=== PATIENT | male | born 1940 | race Caucasian/White ===

== ENCOUNTER → 2022-07-06 09:10 | Outpatient (BNVA) | payer OTHER, SELFPAY | PROVIDERS: PCP Internal Medicine; Visit Provider Psychiatry & Neurology Neurology ==

== ENCOUNTER 2022-09-13 11:22 | Outpatient (AMB) | payer OTHER, SELFPAY ==
--- NOTE | 2022-09-13 11:26 | A.OFFVIS_ITS ---
Intake Vital Signs 09/13/22 11:29 Weight 162 lb BP 122/62 Pulse 62 Pulse Source Pulse Oximeter Pulse Oximetry (%) 98 Oxygen Delivery Method Room Air Intake Visit Reasons: 2m follow up TREMOR/DEMENTIA/ANGIOPATHY-LVM Intake Note: F/U tremors Wood Gang Sawyer Required: Yes Wood Gang Sawyer Name: Sina Allergies No Known Allergies Allergy (Verified 09/13/22 11:27) HPI HPI Comments History of Present Illness Details 81 y/o right handed male presents for follow up of memory issues and tremors. He is accompanied by his grand son Ronan who helps with history. Pt states that his bilateral hands tremor has slightly improved with propranolol 10 mg BID. Pt reports he has less trouble drinking and dressing. He can do most ADLs independently. His memory still same, stable but forgetful and need to remind to take his medications. His takes care of his medications. Pt goes to daycare, socially active with his family and friends. He reports frequent arousals, having some daytime tiredness. However, pt declined sleep study. Denies hallucination or sundowning behavior. [facility] Medical History Action tremor Adenomatous hyperplasia of prostate Dementia Diabetes GERD (gastroesophageal reflux disease) HTN (hypertension) Hyperlipidemia Family History Mother Diabetes Heart disease Social History Alcohol intake: never Patient Tobacco Use Status: Never used Tobacco Review of Systems Const All systems reviewed & are unremarkable except as noted in HPI and below Physical Exam Vital Signs: Last Vital Signs Pulse 62 09/13/22 11:29 BP 122/62 09/13/22 11:29 Pulse Ox 98 09/13/22 11:29 Oxygen Delivery Method Room Air 09/13/22 11:29 Const General: cooperative, healthy appearing, comfortable and no acute distress Nutritional Appearance: average body habitus Neuro Other: Elmuel UE mild postural tremors gait- slow - decreased arm swing on his right General: tone normal and no focal motor deficits Cranial nerves: Yes Facial sensation intact/muscles of mastication intact, Yes Bilaterally intact EOM present, Yes Nystagmus not present, Yes Normal facial strength present and Yes Midline tongue present Cognition (Neuro): abnormal cognition Gait exam (Neuro): Antalgic gait present Motor exam (neuro): 5/5 motor strength present throughout Deep tendon reflexes (DTR's): Right triceps reflex intensity grade: 1+, Left triceps reflex intensity grade: 1+, Rt Biceps (C5, C6): 1+, Left biceps reflex intensity grade: 1+, Right brachioradialis reflex intensity grade: 1+, Left brachioradialis reflex intensity grade: 1+, Right patellar reflex intensity grade: 1+ and Left patellar reflex intensity grade: 1+ Assessment & Plan Assessment & Plan (1) Dementia: Comment: mixed vs alzheimers Code(s): F03.90 - Unspecified dementia, unspecified severity, without behavioral disturbance, psychotic disturbance, mood disturbance, and anxiety (2) Action tremor: Comment: senile or essential tremors Code(s): G25.2 - Other specified forms of tremor Plan Advised patient to continue to take propranolol 10mg bid for tremors. Namenda xR 7mg daily. Advised patient to increase daily physical and cognitive activity. Manage HTN and DM. Medications: Refilled memantine 7 mg PO DAILY 30 ea 6RF propranolol 10 mg PO BID 60 tabs 2RF Coding Level of Care Code Est Pt Level 4 (68876) Diagnoses Dementia F03.90 Action tremor G25.2
[2022-09-13 11:29] VITALS: BP 122/62; PULSE 62; O2SAT 98
== END 2022-09-13 11:51 | disposition home or self-care (01) ==
PROVIDERS: Visit Provider Nurse Practitioner Family
DX: F03.90 Unspecified dementia, unspecified severity, without behavioral disturbance, psychotic disturbance, mood disturbance, and anxiety (principal); G25.2 Other specified forms of tremor
CPT/HCPCS: 99214

== ENCOUNTER → 2022-09-13 11:22 | Outpatient (BNVA) | payer OTHER, SELFPAY | PROVIDERS: Visit Provider Nurse Practitioner Family | DX: F03.90 Unspecified dementia, unspecified severity, without behavioral disturbance, psychotic disturbance, mood disturbance, and anxiety (principal) ==

== ENCOUNTER 2023-01-04 11:31 | Outpatient (AMB) | payer OTHER, SELFPAY ==
--- NOTE | 2023-01-04 11:33 | MHC.OFFVIS ---
Intake Vital Signs 01/04/23 11:36 Weight 164 lb 2 oz BP 144/62 H Blood Pressure Location Lt brachial Position Sitting Pulse 54 Pulse Source Pulse Oximeter Pulse Oximetry (%) 98 Oxygen Delivery Method Room Air Intake Visit Reasons: 4m follow up TREMOR/DEMENTIA/ANGIOPATHY-LVM Intake Note: F/U tremors Assembler Filters Required: Yes Assembler Filters Name: [place] Allergies No Known Allergies Allergy (Verified 01/04/23 11:34) HPI HPI Comments History of Present Illness Details 82 y/o right handed male presents for follow up of memory issues and tremors. He is accompanied by his grand son Ronan who helps with history. Pt started propranolol for tremor, but his HR was low, 50s and propranolol was discontinued. Primidone 25 mg BID started and he states that has less tremor with primidone 25 mg BID. Pt reports he has less trouble drinking and dressing. He can do most ADLs independently. Namenda started for memory loss but it made him not feeling good, and it also discontinued. Pt is not interested in medication for memory at this time. His memory same, stable but forgetful and need to remind to take his medications. His takes care of his medications. Pt goes to daycare, socially active with his family and friends. He reports frequent arousals, having some daytime tiredness. However, pt declined sleep study. [facility] Medical History Action tremor Dementia Adenomatous hyperplasia of prostate GERD (gastroesophageal reflux disease) Hyperlipidemia Diabetes HTN (hypertension) Surgical History (Updated 01/04/23 @ 11:36 by Shayy Liz CMA) History of cataract surgery Family History Mother Diabetes Heart disease Social History (Updated 01/04/23 @ 11:36 by Shayy Liz CMA) Alcohol intake: never Patient Tobacco Use Status: Never used Tobacco Review of Systems Const All systems reviewed & are unremarkable except as noted in HPI and below Physical Exam Vital Signs: Last Vital Signs Pulse 54 01/04/23 11:36 BP 144/62 H 01/04/23 11:36 Pulse Ox 98 01/04/23 11:36 Oxygen Delivery Method Room Air 01/04/23 11:36 Const General: cooperative, healthy appearing, comfortable and no acute distress Nutritional Appearance: average body habitus Neuro Other: Lemuel UE mild postural tremors gait- slow - decreased arm swing on his right General: tone normal and no focal motor deficits Cranial nerves: Yes Facial sensation intact/muscles of mastication intact, Yes Bilaterally intact EOM present, Yes Nystagmus not present, Yes Normal facial strength present and Yes Midline tongue present Cognition (Neuro): abnormal cognition Gait exam (Neuro): Antalgic gait present Motor exam (neuro): 5/5 motor strength present throughout Deep tendon reflexes (DTR's): Right triceps reflex intensity grade: 1+, Left triceps reflex intensity grade: 1+, Rt Biceps (C5, C6): 1+, Left biceps reflex intensity grade: 1+, Right brachioradialis reflex intensity grade: 1+, Left brachioradialis reflex intensity grade: 1+, Right patellar reflex intensity grade: 1+ and Left patellar reflex intensity grade: 1+ Assessment & Plan Assessment & Plan (1) Dementia: Comment: mixed vs alzheimers Code(s): F03.90 - Unspecified dementia, unspecified severity, without behavioral disturbance, psychotic disturbance, mood disturbance, and anxiety (2) Action tremor: Comment: senile or essential tremors Code(s): G25.2 - Other specified forms of tremor Plan Advised patient to continue to take primidone 25 mg bid for tremors. Advised patient to increase daily physical and cognitive activity. Manage HTN and DM. Coding Level of Care Code Est Pt Level 3 (91606) Diagnoses Dementia F03.90 Action tremor G25.2
[2023-01-04 11:36] VITALS: BP 144/62; PULSE 54; O2SAT 98
== END 2023-01-04 11:49 | disposition home or self-care (01) ==
PROVIDERS: PCP Internal Medicine; Visit Provider Nurse Practitioner Family
DX: F03.90 Unspecified dementia, unspecified severity, without behavioral disturbance, psychotic disturbance, mood disturbance, and anxiety (principal); G25.2 Other specified forms of tremor
CPT/HCPCS: 99213

== ENCOUNTER → 2023-01-04 11:31 | Outpatient (BNVA) | payer OTHER, SELFPAY | PROVIDERS: PCP Internal Medicine; Visit Provider Nurse Practitioner Family | DX: F03.90 Unspecified dementia, unspecified severity, without behavioral disturbance, psychotic disturbance, mood disturbance, and anxiety (principal) ==

== ENCOUNTER 2023-11-19 13:12 | Outpatient (AMB) | payer OTHER, SELFPAY ==
--- NOTE | 2023-11-19 13:16 | MHC.OFFVIS ---
Vital Signs 11/19/23 13:17 Height 5 ft 6 in Weight 167 lb 2 oz BMI 27.0 BP 132/60 Blood Pressure Location Rt brachial Position Sitting Respiration 16 Pulse 63 Pulse Source Pulse Oximeter Pulse Oximetry (%) 97 Oxygen Delivery Method Room Air Intake Visit Reasons: 6 mnts f/u REMOR/DEMENTIA/ANGIOPATHY Intake Note: Pt presents for a 10 month follow up for tremors and dementia. Isobutylene Operator Chief Required: Yes Isobutylene Operator Chief Services: Isobutylene Operator Chief Present Isobutylene Operator Chief Name: Pt sonRonan Allergies No Known Allergies Allergy (Verified 11/19/23 13:16) Medication List - Last Reconciled 11/19/23 by Torri Martinez MD acetaminophen (Tylenol Extra Strength) 500 mg PO Q6H PRN amlodipine 10 mg PO DAILY atorvastatin 40 mg PO DAILY blood-glucose meter (FreeStyle Lite Meter kit) As directed candesartan 16 mg PO DAILY docusate sodium 100 mg PO DAILY esomeprazole magnesium (Nexium 24HR) 20 mg PO DAILY isosorbide mononitrate ER 30 mg PO DAILY metformin 1,000 mg PO DAILY primidone 25 mg (1/2 x 50 mg) PO BID 90 days tamsulosin 0.4 mg PO BEDTIME HPI Comments Details: 82 y/o right handed male presents for follow up of memory issues and tremors. He is accompanied by his grand son Ronan who helps with history. Tremors are fairly controlled with primidone 25 mg BID. Pt reports he has less trouble drinking and dressing. He can do most ADLs independently. Pt is not interested in medication for memory at this time. His memory same, stable but forgetful and need to remind to take his medications. His takes care of his medications. Patient goes to daycare,lives with his family, socially active with his family and friends. [facility] Medical History (Updated 11/19/23 @ 13:44 by Torri Martinez MD) Cognitive disorder Action tremor Dementia Adenomatous hyperplasia of prostate GERD (gastroesophageal reflux disease) Hyperlipidemia Diabetes HTN (hypertension) Surgical History History of cataract surgery Family History Mother Diabetes Heart disease Social History Alcohol intake: never Patient Tobacco Use Status: Never used Tobacco Physical Exam Vital Signs: Last Vital Signs Pulse 63 11/19/23 13:17 Resp 16 11/19/23 13:17 BP 132/60 11/19/23 13:17 Pulse Ox 97 11/19/23 13:17 Oxygen Delivery Method Room Air 11/19/23 13:17 BMI result Body Mass Index 27.0 Const General: cooperative, healthy appearing, comfortable and no acute distress Nutritional Appearance: average body habitus Neuro Other: Lemuel UE mild postural tremors gait- slow - decreased arm swing on his right General: tone normal and no focal motor deficits Cranial nerves: Yes Facial sensation intact/muscles of mastication intact, Yes Bilaterally intact EOM present, Yes Nystagmus not present, Yes Normal facial strength present and Yes Midline tongue present Cognition (Neuro): abnormal cognition Gait exam (Neuro): Antalgic gait present Motor exam (neuro): 5/5 motor strength present throughout Deep tendon reflexes (DTR's): Right triceps reflex intensity grade: 1+, Left triceps reflex intensity grade: 1+, Rt Biceps (C5, C6): 1+, Left biceps reflex intensity grade: 1+, Right brachioradialis reflex intensity grade: 1+, Left brachioradialis reflex intensity grade: 1+, Right patellar reflex intensity grade: 1+ and Left patellar reflex intensity grade: 1+ Assessment & Plan Assessment & Plan (1) Action tremor: Comment: senile or essential tremors Code(s): G25.2 - Other specified forms of tremor Category: Medical (2) Cognitive disorder: Code(s): F09 - Unspecified mental disorder due to known physiological condition Category: Medical Plan Continue to take primidone 25 mg bid for tremors. Advised patient to increase daily physical and cognitive activity. will f/u clinically Medications: Changed From primidone 25 mg (1/2 x 50 mg) PO BID 30 days 30 tabs 1RF To primidone 25 mg (1/2 x 50 mg) PO BID 90 days 90 tabs 4RF Coding Level of Care Code Est Pt Level 4 (06715) Diagnoses Action tremor G25.2 Cognitive disorder F09
[2023-11-19 13:17] VITALS: BP 132/60; PULSE 63; RESP 16; O2SAT 97; BMI 27.0
== END 2023-11-19 13:48 | disposition home or self-care (01) ==
PROVIDERS: PCP Internal Medicine; Visit Provider Psychiatry & Neurology Neurology
DX: G25.2 Other specified forms of tremor (principal); R41.89 Other symptoms and signs involving cognitive functions and awareness
CPT/HCPCS: 99214

== ENCOUNTER → 2023-11-19 13:12 | Outpatient (BNVA) | payer OTHER, SELFPAY | PROVIDERS: PCP Internal Medicine; Visit Provider Psychiatry & Neurology Neurology ==

== ENCOUNTER 2024-11-17 08:57 | Outpatient (AMB) | payer OTHER, SELFPAY ==
--- OUTSIDE RECORDS SUMMARY | 2024-05-21 05:30 | XMS_ITS ---
Author Organization [facility] Address [address] [place] [address] Care Team Providers Care Dean Of Education Name Role Phone Rosalia GALLARDO, Sai Primary Care Provider U Jaime Floyd Unavailable [phone] Encounters Encounter Location Date Provider Diagnosis [address] [id number] 05/21/2024 Jaime Carlson Plan Of Treatment Next Appt Details Provider Name:Jaime Carlson , 03/02/2025 09:30:00 AM, [address] [place] [address], [id number], Progress Notes * Rob DANIELSOB:[birth year] (83 yo M)Acc No.[id number]:05/21/2024 Progress Note Patient: Binta PERKINSjennifer Provider: Adithya Carlson DPM :1940 A ge:83 Y S ex:Male Date:05/21/2024 Address:[address] [place], [place] [id number] Pcp:Sai Lindsey MD Subjective: * Chief Complaints: * * Medical History: Objective: * Vitals: Assessment: Plan: * Treatment: * Images: * The named appointment provid er may or may not be the originator of this progress note, and it is not deemed complete until electronically signed by the appointment provider. Sign off status: Pending * Provider: Adithya Carlson DPM Date: 0 05/21/2024 Generated for Antione Bautista on: 0 11/17/2024 09:29 AM EDT
--- OUTSIDE RECORDS SUMMARY | 2024-11-13 04:45 | XMS_ITS ---
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 Primary Care Provider U Jaime Floyd Unavailable [phone] Allergies No Known Allergies REASON FOR VISIT At Risk Footcare, Painful Nail(s) aggravated by shoes and causing difficulty standing/walking, Possible Infection, Skin problem Medications Medication SIG (Take, Route, Frequency, Duration) Notes Start Date End Date Status Ketorolac Tromethamine Not-Taking Diclofenac Sodium 1 % as directed Externally Not-Taking Alcohol Pads Not-David ing FreeStyle Lite Test Not-Taking FreeStyle Lite - as directed N ot-Taking Extra Depth Orthopedic Shoes, (1) Pair With (3) Pair Custom Heat Molded Multidensity Innersoles Dx: NIDDM/PVD(E11.51), Hammertoe Foot Deformity(M20.41,M20.42 ), Preulcerative Skin Lesion(s)(L85.1) Wear Daily; Duration: 365 days 02/21/2024 Active Vitamin B-12 500 MCG 1 tablet Orally Onc e a day Not-Taking Tussin Chest Congestion Not-Taking Amoxicillin Not-Taki ng Ibuprofen Not-Taking Cyanocobalamin Activ e Tylenol Extra Strength 500 MG 1 tablet as needed Orally every 6 hrs Active Calcipotriene 0.005 % 1 application Externally Twice a day Active Betamethasone Dipropionate 0.05 % 1 application Externally Once a day Active Ammonium Lactate 12 % 1 application Externally Twice a day Active Docusate Sodium 100 MG 1 capsule as need ed Orally Once a day Active Candesartan Cilexetil 32 MG 1 tablet Orally Once a day Active Atorvastatin Calcium 40 MG 1 tablet Orally Once a day Active amLODIPine Besylate 10 MG 1 tablet Orall y Once a day Active Ciclopirox Active Esomeprazole Magnesium 20 MG 1 capsule Orally Once a day Active Ammonium Lactate 12 % 1 application Externally to affected areas of dry skin to feet except for between the toes Twice a day; Duration: 30 days Active Latanoprost Active Primidone 50 MG 1 tablet Orally Once a day Active Tamsulosin HCl 0.4 MG 1 capsule Orally O nce a day Active Tacrolimus 0.1 % 1 application Externally Once a day Active Isosorbide Mononitrate ER 60 MG 1 tablet in the morning Orally Once a day Active Immunizations Vaccine Route Administration Date Status Comme nts Influenza Unknown 11/13/2024 Refused Social History Tobacco Use: Social History Observation Description Date Details (start date - stop date) Never Smoker NA - NA Tobacco use other than smoking: Question Answer Notes Are you an other tobacco user? No Tobacco Control (Standard) Question Answer Notes Tobacco use: Nonsmoker Additional Findings: Tobacco non-user Current no nsmoker AUDIT-C (Standard) Question Answer Notes Did you have a drink containing alcohol in the p ast year? No Points 0 Interpretation Negative Vital Signs Blood pressure systolic 131 mm Hg 11/14/19 25 Blood pressure diastolic 78 mm Hg 025 Height 5 ft 4 in in 11/13/2024 Weight 165 lbs 11/13/2024 BMI 28.32 kg/m2 11/13/2024 Procedures Procedure Date Ordered Date Performed Result Body Sit e 03627-CVPPAFC NAIL, 6 OR MORE 11/13/2024 N/A 28925 I&D ABSCESS- SIMPLE,SINGLE 11/13/2024 N/A 57550-[id number] SKIN LESIONS, OVER 4 11/13/2024 N/A Encounters Encounter Location Date Provider Diagnosis [facility] [address] [address] 11/13/2024 Jaime Carlson Type 2 diabetes mellitus with diabetic peripheral angiopathy without gangrene E11.51 ; Tinea unguium B35.1 ; Pain in right toe(s) M79.674 ; Pain in left toe(s) M79.675 ; Abscess of toe, right L02.611 and Xerosis of skin L85.3 Assessments Encounter Date Diagnosis (ICD Code) Assessment Notes Treatment Notes Treatment Clinical Notes Section Notes 11/13/2024 Type 2 diabetes mellitus with diabetic peripheral angiopathy without gangrene (ICD-10 - E11.51) Q7(A), Q8(2B), Q9(1B,2C) 11/13/2024 Tinea unguium (ICD-10 - B35.1) 11/13/2024 Pain in right toe(s) (ICD-10 - M79.674) 11/13/2024 Pain in left toe(s) (ICD-10 - M79.675) 11/13/2024 Abscess of toe, right (ICD-10 - L02.611) Patient Educated with: WOUND CARE INSTRUCTIONS.p df (WOUND CARE INSTRUCTIONS.p df) 11/13/2024 Xerosis of skin (ICD-10 - L85.3) Plan Of Treatment Medication Medication Name Sig Start Date Stop Date Notes Ammonium Lactate 12 % 1 application Exte rnally to affected areas of dry skin to feet except for between the toes Twice a day; Duration: 30 days Treatment Notes Assessment Notes Abscess of toe, right Patient Educated w ith: WOUND CARE INSTRUCTIONS.pdf (WOUND CARE INSTRUCTIONS.pdf) Pending Test Test Name Order Date [id number] NAIL, 6 OR MORE 11/13/2024 41358 I&D ABSCESS- SIMPLE,SINGLE 025 [id number] SKIN LESIONS, OVER 4 11/14/19 Next Appt Details Follow Up: 2 Months, Reason: Provider Name:Jaime Carlson , 03/02/2025 09:30:00 AM, [address] [facility], [address], [place], [address], Procedure Notes * Category Sub-Category Detail Notes Debride Nail 6-10 Nail debridement Due to the cl inical pathology outlined in the exam findings, performance of this nail treatment is medically necessary as its management by an unskilled/untrained nonprofessional would put this patients foot and overall health at risk. Therefore, debridement to affected nail(s), as described in exam ( TA, T1, T2, T3, T4, T5, T6, T7, T8, T9 ), was performed exclusively by the physician of record to reduce/remove overall nail length, girth, thickness, subungual debris, and necrotic tissue, by manual and/or electrical means through the use of a nail nipper and/or dremel-type scissors grinder, to a more viable healthy nail plate or bed tissue 6-10 nails in total. Silver nitrate was used for any petechial bleeding as necessary. Definitive antifungal treatment options, both pharmaceutical and surgical, have been reviewed and discussed with the patient. The patient solely prefers the use of intermittent/as needed professional debridement services for their nail condition and understands the need for additional periodic treatments to maintain effectiveness in symptomatic relief - 33585 I&D nail abscess Location T5, As per exam Procedure Performed incision a nd drainage of Subungual Abscess. Incised and Drained involved toenail with sterile nipper and curettaged infected devitalized tissue to healthy bleeding bed. Approximately ( 0.1 ) cc purulent fluid material was drained. Any granuloma present was removed at this time. No underlying bone was visualized. There was minimal bleeding as hemostasis was achieved through the temporary use of either a digital tournaquet or the aforementioned local with epinephrine. Application of sterile Bacitracin dressing performed. Local wound care instructions discussed and dispensed. Recommended Tylenol or Motrin for pain/discomfort (86437), DIABETES: Pt was advised as to the risk of delayed or nonhealing due to diabetes. Pt is to call the office with any questions, concerns, or complications Type Subungual abscess Anesthesia was accomplished TOP ICALLY with Lidocaine Hydrochloride Jelly 2 percent Keratoma Treatment Parring or Cutting o f Benign Hyperkeratotic Lesion(s) (-57) More than 4 Lesions - Due to the a t risk nature of the patients medical condition as documented in the exam findings, performance of this keratoderma treatment is medically necessary as its management by an unskilled/untrained nonprofessional would put this patients foot and overall health at risk. Therefore, the benign hyperkeratotic lesions, ( 8) in total, locations as stated and described in the exam ( SUB MTH (s), 1, B/L, SUB MTH (s), 2, Right, SUB MTH (s), 3, Right, SUB MTH (s), 5, B/L, Plantar Heel(s), B/L ), were pared, and/or cut utilizing a sterile 15 blade, tissue nippers, and/or power dremel instrumentation by the physician of record - 25320, Q8 Progress Notes * Rob DANIELSOB:[birth year] (83 yo M)Acc No.[id number]:11/13/2024 Progress Note Patient: Ariadne PERKINS Provider: Adithya Carlson DPM :1940 A ge:83 Y S ex:Male Date:11/13/2024 Address:[address] [place], [place] [id number] Pcp:Sai Lindsey MD Subjective: * Chief Complaints: * A t Risk FootcarePainful Nail(s) aggravated by shoes and causing difficulty standing/walkingPossible InfectionSkin problem * HPI: A t Risk footcare: Pt States Last PCP Visit: D ate 0 10/01/2024 [facility] P atient accompanied by, GrandsonARPITA, who serves as, Director Records Management/Roof Tile Layer, and is physically present in exam room at time of visit.? S kin problems: Nature: d ryness , scaling. Location: B /L . Duration: s everal days. Course: w orse. Treatments: T opical OTC moisturizing lotion/cream is no longer effective, has not relieved condition. * ROS: G eneral/Constitutional: Nausea d enies. V omiting d enies. H nicolette Thirst d enies. L oss appetite d enies. C hills d enies. F atigue d enies.?Fever d enies. N ight Sweats d enies. U nexplained weight loss d enies. U nexplained weight gain d enies. H EENTM: Dentures d enies. D izziness d enies. G lasses/contacts d enies. R etinopathy d enies. B lurred/double vision d enies. T MJ?denies. D ischarge/drainage d enies. I mplants d enies. S ore throat d enies. D ental implants d enies. H jie of hearing d enies. D ifficulty chewing/swallowing/speaking d enies. N ose bleeds d enies. S ore mouth d enies. ? R espiratory: On Oxygen d enies. P neumonia/pleurisy d enies.?Bronchitis d enies. E mphysema d enies. C oughing d enies. C ough blood?denies. S hortness of breath d enies. W heezing d enies. C ardiovascular: Pacemaker d enies. M STYLE ADVISOR d enies. W PW d enies. C HF d enies. H eart attack d enies. S eptal defect d enies. R apid beat d enies. C hest pain a dmits. A trial Fib. d enies. M urmur/Palpitations d enies. G astrointestinal: Hemorrhoids d enies. S tomach/Abdominal pain d enies. D ark blood stool d enies. I rritable bowel d enies. C onstipation d enies. D iarrhea d enies. H ematology: Swelling a dmits. C lots d enies. V aricose Veins d enies. B ruising d enies. B leeding problem d enies. G enitourinary: Blood urine d enies. F requent/Painfu/urination/bladder control d enies. K idney stones d enies. I nfection (UTI) d enies. N ephropathy d enies. s ex trans dis (STD) d enies. P rostate d enies. M usculoskeletal: Hammertoes a dmits. B unions d enies. B ack Pain d enies. M uscle Cramps/ Resting d enies. M uscle cramps / walking d enies.?Generalized aches and pains d enies. W eakness d enies. I nteg.: Thomas d enies. S cars d enies. C orns/calluses?admits. I ngrown nails a dmits. P ainful nails a dmits. O pen Sores d enies. R ashes d enies. N eurologic: Difficulty sleeping d enies. B rain disorder d enies. N umbness d enies. B alance trouble d enies. C onfusion d enies. F ainting/blackouts d enies. T ingling d enies. T remors d enies. * Medical History: * Surgical History: c ataract surgery right eye * Hospitalization/Major Diagno stic Procedure: D enies Past Hospitalization * Family History: M other: , diabetes, diagnosed with Diabetic - NIDDM. F ather: . S pouse: alive. * Social History: T obacco Use: T obacco use other than smoking A re you an other tobacco user? N o Tobacco Control (Standard) T obacco use: N onsmoker A dditional Findings: Tobacco non-user C urrent nonsmoker D rugs/Alcohol: D rugs H ave you used drugs other than those for medical reasons in the past 12 months? N o M iscellaneous: C affeine: no. Children: yes. Exercise: no. Marital status: . Occupation: Retired. D rug/Alcohol: A MARLENA-C (Standard) D id you have a drink containing alcohol in the past year? N o P oints 0 I nterpretation N egative * Medications: T akingTacrolimus 0.1 % Cream 1 application Externally Once a day Isosorbide Mononitrate ER 60 MG Tablet Extended Release 24 Hour 1 tablet in the morning Orally Once a day Latanoprost Primidone 50 MG Tablet 1 tablet Orally Once a day Tamsulosin HCl 0.4 MG Capsule 1 capsule Orally Once a day Esomeprazole Magnesium 20 MG Capsule Delayed Release 1 capsule Orally Once a day Docusate Sodium 100 MG Capsule 1 capsule as needed Orally Once a day Candesartan Cilexetil 32 MG Tablet 1 tablet Orally Once a day Atorvastatin Calcium 40 MG Tablet 1 tablet Orally Once a day amLODIPine Besylate 10 MG Tablet 1 tablet Orally Once a day Ciclopirox Cyanocobalamin Tylenol Extra Strength 500 MG Tablet 1 tablet as needed Orally every 6 hrs Calcipotriene 0.005 % Cream 1 application Externally Twice a day Betamethasone Dipropionate 0.05 % Cream 1 application Externally Once a day Ammonium Lactate 12 % Cream 1 application Externally Twice a day Extra Depth Orthopedic Shoes, (1) Pair With (3) Pair Custom Heat Molded Multidensity Innersoles . Dx: NIDDM/PVD(E11.51), Hammertoe Foot Deformity(M20.41,M20.42), Preulcerative Skin Lesion(s)(L85.1) Wear Daily Taking Tacrolimus 0.1 % Cream 1 application Externally Once a day Taking Isosorbide Mononitrate ER 60 MG Tablet Extended Release 24 Hour 1 tablet in the morning Orally Once a day Taking Latanoprost Taking Primidone 50 MG Tablet 1 tablet Orally Once a day Taking Tamsulosin HCl 0.4 MG Capsule 1 capsule Orally Once a day Taking Esomeprazole Magnesium 20 MG Capsule Delayed Release 1 capsule Orally Once a day Taking Docusate Sodium 100 MG Capsule 1 capsule as needed Orally Once a day Taking Candesartan Cilexetil 32 MG Tablet 1 tablet Orally Once a day Taking Atorvastatin Calcium 40 MG Tablet 1 tablet Orally Once a day Taking amLODIPine Besylate 10 MG Tablet 1 tablet Orally Once a day Taking Ciclopirox Taking Cyanocobalamin Taking Tylenol Extra Strength 500 MG Tablet 1 tablet as needed Orally every 6 hrs Taking Calcipotriene 0.005 % Cream 1 application Externally Twice a day Taking Betamethasone Dipropionate 0.05 % Cream 1 application Externally Once a day Taking Ammonium Lactate 12 % Cream 1 application Externally Twice a day Taking Extra Depth Orthopedic Shoes, (1) Pair With (3) Pair Custom Heat Molded Multidensity Innersoles . Dx: NIDDM/PVD(E11.51), Hammertoe Foot Deformity(M20.41,M20.42), Preulcerative Skin Lesion(s)(L85.1) Wear Daily Not-Taking/PRNVitamin B-12 500 MCG Tablet 1 tablet Orally Once a day Tussin Chest Congestion Amoxicillin Ibuprofen Ketorolac Tromethamine Diclofenac Sodium 1 % Gel as directed Externally Alcohol Pads FreeStyle Lite Test FreeStyle Lite - Device as directed Medication List reviewed and reconciled with the patientNot-Taking/PRN Vitamin B-12 500 MCG Tablet 1 tablet Orally Once a day Not-Taking/PRN Tussin Chest Congestion Not-Taking/PRN Amoxicillin Not-Taking/PRN Ibuprofen Not-Taking/PRN Ketorolac Tromethamine Not-Taking/PRN Diclofenac Sodium 1 % Gel as directed Externally Not-Taking/PRN Alcohol Pads Not-Taking/PRN FreeStyle Lite Test Not-Taking/PRN FreeStyle Lite - Device as directed Medication List reviewed and reconciled with the patient * Allergies: N .K.D.A.yes[Allergies Verified] Objective: * Vitals: H t: 5 ft 4 in, Wt: 165, BMI: 28.32, Shoe size: 9, BP: 131/78 mm Hg, BS: 140, Ht- cm: 162.56 cm, Wt-k.84 kg. * P ast Orders: L ab:HEMOGLOBIN A1C (GLYCOHEMOGLOBIN) (Order Date - 10/02/2024) (Collection Date & Time - 10/02/2024 09:24 AM) Value Reference Range HEMOGLOBIN A1C % (HH) 6.6 * Examination: O phthalmology Referral: DIABETES EYE EXAM P rocedure Performed: Bucky Jain ate of Exam Performed 1 03/03/2023 D iabetic Retinopathy Screening: Y samir R etinal Screening Performed: Bucky Collazo indings of Diabetic Eye Exam: n o retinopathy V ascular: DP PULSES (B): 0/4, B/L. PT PULSES (B): 0/4, B/L. CAPILLARY FILL TIME: delayed, all digits, B/L. TROPHIC CONDITION-TEXTURE/ELASTICITY/TURGOR/HAIR GROWTH (B):? decreased, fragile, thin, shiny, with sparse to absent hair growth, B/L. TEMPERTURE GRADIENT (C): decreased, cool to cool, proximal to distal, B/L. PIGMENTATION: r ubrous, B/L. EDEMA (C): a bsent, B/L. CLAUDICATION (C): d enies, B/L. REST PAIN: d enies, B/L. PARESTHESIA (C): a bsent, B/L. BURNING (C): a bsent, B/L. N ails: NAILS are: E longated, overgrown, dystrophic, lytic, greater than 3mm thick, discolored and friable with crumbly malodorous subungual debris, with pain on palpation, TA, T1, T2, T3, T4, T5, T6, T7, T8, T9, CARISA-HORN appearance 10mm thickness or greater noted, T5. D ermatologic: SKIN FINDINGS: S kin exam reveals Keratotic lesion(s) located at, SUB MTH (s), 1, B/L, SUB MTH (s), 2, Right, SUB MTH (s), 3, Right, SUB MTH (s), 5, B/L, Plantar Heel(s), B/L , Skin shows sign(s) of, dryness, scaling, in a stocking fashion, no fissure(s) present, B/L. A bscess/infected nail: INSPECTION R eveals Subungual Abscess with nail fluctuance, mild localized erythema, and yellow purulent fluid with pre-operative size approximately ( 1-2 ) mm square, but without exposed bone , T5. Assessment: * Assessment: 1. T ype 2 diabetes mellitus with diabetic peripheral angiopathy without gangrene - E11.51 (Primary) S pecify :Q8 N otes :Q7(A), Q8(2B), Q9(1B,2C) 2 . T inea unguium - B35.1 3 . P ain in right toe(s) - M79.674 4 . P ain in left toe(s) - M79.675 5 . A bscess of toe, right - L02.611 6 . X erosis of skin - L85.3 S pecify :Acute problem, Uncomplicated (3), Rx Management (4) Plan: * Treatment: 2. T inea unguium P rocedure: 51470-[id number] NAIL, 6 OR MORE 3. A bscess of toe, right P rocedure: 93627 I&D ABSCESS- SIMPLE,SINGLE Notes: Patient Educated with: WOUND CARE INSTRUCTIONS.pdf (WOUND CARE INSTRUCTIONS.pdf) 4. X erosis of skin Start Ammonium Lactate Cream, 12 %, 1 application, Externally to affected areas of dry skin to feet except for between the toes, Twice a day, 30 days, 280, Refills 3. * Procedures: D ebride Nail 6-10: Nail debridement D ue to the clinical pathology outlined in the exam findings, performance of this nail treatment is medically necessary as its management by an unskilled/untrained nonprofessional would put this patients foot and overall health at risk. Therefore, debridement to affected nail(s), as described in exam ( T A, T1, T2, T3, T4, T5, T6, T7, T8, T9 ) , was performed exclusively by the physician of record to reduce/remove overall nail length, girth, thickness, subungual debris, and necrotic tissue, by manual and/or electrical means through the use of a nail nipper and/or dremel-type scissors grinder, to a more viable healthy nail plate or bed tissue 6-10 nails in total. Silver nitrate was used for any petechial bleeding as necessary. Definitive antifungal treatment options, both pharmaceutical and surgical, have been reviewed and discussed with the patient. The patient solely prefers the use of intermittent/as needed professional debridement services for their nail condition and understands the need for additional periodic treatments to maintain effectiveness in symptomatic relief - 07244. I &D nail abscess: Type S ubungual abscess. Anesthesia w as accomplished TOPICALLY with Lidocaine Hydrochloride Jelly 2 percent. Location T 5, As per exam. Procedure P erformed incision and drainage of Subungual Abscess. Incised and Drained involved toenail with sterile nipper and curettaged infected devitalized tissue to healthy bleeding bed. Approximately ( 0.1 ) cc purulent fluid material was drained. Any granuloma present was removed at this time. No underlying bone was visualized. There was minimal bleeding as hemostasis was achieved through the temporary use of either a digital tournaquet or the aforementioned local with epinephrine. Application of sterile Bacitracin dressing performed. Local wound care instructions discussed and dispensed. Recommended Tylenol or Motrin for pain/discomfort (10501), DIABETES: Pt was advised as to the risk of delayed or nonhealing due to diabetes. Pt is to call the office with any questions, concerns, or complications. K eratoma Treatment: Parring or Cutting of Benign Hyperkeratotic Lesion(s) ( -57) More than 4 Lesions - Due to the at risk nature of the patients medical condition as documented in the exam findings, performance of this keratoderma treatment is medically necessary as its management by an unskilled/untrained nonprofessional would put this patients foot and overall health at risk. Therefore, the benign hyperkeratotic lesions, ( 8) in total, locations as stated and described in the exam ( S UB MTH (s), 1 , B /L, S UB MTH (s), 2 , R ight, S UB MTH (s), 3 , R ight, S UB MTH (s), 5 , B /L, P lantar Heel(s), B /L ) , were pared, and/or cut utilizing a sterile 15 blade, tissue nippers, and/or power dremel instrumentation by the physician of record - 18465, Q8. * Immunizations: Influenza (Not administered - Refused: Patient decision) * Procedure Codes: 1 1721 DEBRIDE NAIL, 6 OR MORE, Modifiers: XS 06273 DRAINAGE OF SKIN ABSCESS, Modifiers: XS , [id number] TRIM SKIN LESIONS, OVER 4, Modifiers: XS , Q8 * Preventive Medicine: Counseling: D iscussion: - 13: Office or other outpatient visit for the evaluation and management of an established patient, which required a medically appropriate history and/or examination and LOW level of DECISION MAKING for: 1 STABLE ACUTE UNCOMPLICATED PROBLEM, 2 OR MORE MINOR PROBLEMS, OR 1 STABLE CHRONIC PROBLEM, THAT POSE(S) A LOW RISK FOR MORBIDITY/MORTALITY. The visit on the day of the encounter encompassed interpreting the data and educating the patient as to the nature of their condition, treatment options available according to their individual PMH, meds, allergies, and overall health/living conditions, as well as any potential risks or complications that may occur from a failure to adhere to, and participate in, the recommended course of therapy. The discussion included a complete verbal, and/or written explanation of the examination results, any x-rays taken, the proposed diagnosis, and outline of the treatment plan. A schedule for future care needs was also explained. The patient verbalized an understanding of the instructions at this time and agreed to be an active participant in their treatment. If the patient should think of any questions or concerns after the visit, I have encouraged the patient to call the office. X erosis: T he patient was counseled on the diagnosis, potential etiologies, and treatment options for their skin condition. We discussed the risks and benefits of each option from performing no treatment, to utilizing OTC topical skin creams/ointments, to utilizing prescription topical creams/ointments, to utilizing customized compounded topical medications and use of nocturnal occlusion with any/all previously detailed therapies. We discussed the advantages and disadvantages of each possible treatment and importance for adherence to all the recommended therapies for optimum success and avoid potential complications such as open sore/infection/possible hospitalization. We discussed the potential effectiveness of each topical preparation as well as each ones possible side effects and/or patient medication interactions. Patient questions re: use, dosage, successful outcomes, and application consistency were reviewed and the patient verbalized that all answers were clearly understood. The patient has decided to apply Rx skin creams to their feet save the interspaces while paying special attention to the heels. Such was sent to their pharmacy at the time of visit. Screening/Special Tests: F all Risk Screening: N o falls in the past year F ALLS: Screening for Future Fall Risk Have you had any falls with injury in the past year? N o * Follow Up: 2 Months * Images: * Sign off status: Completed true * Provider: Adithya Carlson DPM Date: 0 11/13/2024 Generated for Antione caruso/Marli/Kiesha on: 11/17/2024 09:29 AM EDT History and Physical Notes * HPI (History of Present Illness) Category Sub-Category Detail Notes Category Not es Skin problems Nature: dryness , scaling Location: B/L Duration: several days Course: worse Treatments: Topical OTC moisturi zing lotion/cream is no longer effective, has not relieved condition At Risk footcare Pt States Last PCP Visit: Date: [facility] Patient accompanied by, ARPITA Bazzi, who serves as, Director Records Management/Roof Tile Layer, and is physically present in exam room at time of visit Examination Category Sub-Category Detail Notes Category Not es Dermatologic SKIN FINDINGS: Skin exam reveal s Keratotic lesion(s) located at, SUB MTH (s), 1, B/L, SUB MTH (s), 2, Right, SUB MTH (s), 3, Right, SUB MTH (s), 5, B/L, Plantar Heel(s), B/L , Skin shows sign(s) of, dryness, scaling, in a stocking fashion, no fissure(s) present, B/L Ophthalmology Referral DIABETES EYE EXAM Procedu re Performed:: Yes Date of Exam Performed: 01/02/2024 Diabetic Retinopathy Screening:: Yes Retinal Screening Performed:: Yes Findings of Diabetic Eye Exam:: no retin opathy Vascular DP PULSES (B): 0/4, B/L PT PULSES (B): 0/4, B/L CAPILLARY FILL TIME: delayed, all digits , B/L TEMPERTURE GRADIENT (C): decreased, cool to cool, proximal to distal, B/L TROPHIC CONDITION-TEXTURE/ELASTICITY/TURGOR/HAIR GROWTH (B): decreased, fragile, thin, shiny, with sp arse to absent hair growth, B/L EDEMA (C): absent, B/L CLAUDICATION (C): denies, B/L REST PAIN: denies, B/L PIGMENTATION: rubrous, B/L PARESTHESIA (C): absent, B/L BURNING (C): absent, B/L Nails NAILS are: Elongated, overg rown, dystrophic, lytic, greater than 3mm thick, discolored and friable with crumbly malodorous subungual debris, with pain on palpation, TA, T1, T2, T3, T4, T5, T6, T7, T8, T9, CARISA-HORN appearance 10mm thickness or greater noted, T5 Abscess/infected nail INSPECTION Reveals Wu bungual Abscess with nail fluctuance, mild localized erythema, and yellow purulent fluid with pre-operative size approximately ( 1-2 ) mm square, but without exposed bone , T5
--- NOTE | 2024-11-17 08:59 | MHC.OFFVIS ---
Vital Signs 11/17/24 09:00 Height 5 ft 6 in Weight 167 lb 8 oz BMI 27.0 BP 140/76 H Blood Pressure Location Rt brachial Position Sitting Pulse 57 Pulse Source Pulse Oximeter Pulse Oximetry (%) 97 Oxygen Delivery Method Room Air Intake Visit Reasons: 6 mnts f/u REMOR/DEMENTIA/ANGIOPATHY Intake Note: Follow up Cognitive disorder and senile or essential tremor Directory Operator Required: Yes Directory Operator Services: Directory Operator Offered & Declined Directory Operator Name: Grandson to interpret Accompanied by: Grand Child Allergies No Known Allergies Allergy (Verified 11/17/24 09:00) Medication List - Last Reconciled 11/17/24 by Torri Martinez MD acetaminophen (Tylenol Extra Strength) 500 mg PO Q6H PRN amlodipine 10 mg PO DAILY atorvastatin 40 mg PO DAILY blood-glucose meter (FreeStyle Lite Meter kit) As directed candesartan 16 mg PO DAILY docusate sodium 100 mg PO DAILY esomeprazole magnesium (Nexium 24HR) 20 mg PO DAILY isosorbide mononitrate ER 30 mg PO DAILY metformin 1,000 mg PO DAILY primidone 25 mg (1/2 x 50 mg) PO BID 90 days tamsulosin 0.4 mg PO BEDTIME HPI Comments Details: 83 y/o right handed male presents for follow up of memory issues and tremors. He is accompanied by his grand son Ronan who helps with history. Tremors are fairly controlled with primidone 25 mg BID. Pt reports he has less trouble drinking and dressing. He can do most ADLs independently. Pt is not interested in medication for memory at this time. His memory same, stable but forgetful and need to remind to take his medications. His takes care of his medications. Patient goes to daycare,lives with his family, socially active with his family and friends. [facility] Medical History Cognitive disorder Action tremor Dementia Adenomatous hyperplasia of prostate GERD (gastroesophageal reflux disease) Hyperlipidemia Diabetes HTN (hypertension) Surgical History History of cataract surgery Family History Mother Diabetes Heart disease Social History Alcohol intake: never Patient Tobacco Use Status: Never used Tobacco Physical Exam Vital Signs: Last Vital Signs Pulse 57 11/17/24 09:00 BP 140/76 H 11/17/24 09:00 Pulse Ox 97 11/17/24 09:00 Oxygen Delivery Method Room Air 11/17/24 09:00 BMI result Body Mass Index 27.0 Const General: cooperative, healthy appearing, comfortable and no acute distress Nutritional Appearance: average body habitus Neuro Other: Lemuel UE mild postural tremors gait- slow - decreased arm swing on his right General: tone normal and no focal motor deficits Cranial nerves: Yes Facial sensation intact/muscles of mastication intact, Yes Bilaterally intact EOM present, Yes Nystagmus not present, Yes Normal facial strength present and Yes Midline tongue present Cognition (Neuro): abnormal cognition Gait exam (Neuro): Antalgic gait present Motor exam (neuro): 5/5 motor strength present throughout Assessment & Plan Assessment & Plan (1) Action tremor: Comment: senile or essential tremors Code(s): G25.2 - Other specified forms of tremor Category: Medical (2) Cognitive disorder: Code(s): F09 - Unspecified mental disorder due to known physiological condition Category: Medical Plan Continue to take primidone 25 mg bid for tremors. Advised patient to increase daily physical and cognitive activity. will f/u clinically Medications: Refilled primidone 25 mg (1/2 x 50 mg) PO BID 90 tabs 4RF 90 days Coding Level of Care Code Est Pt Level 4 (92493) Diagnoses Action tremor G25.2 Cognitive disorder F09
[2024-11-17 09:00] VITALS: BP 140/76; PULSE 57; O2SAT 97; BMI 27.0
--- OUTSIDE RECORDS SUMMARY | 2024-11-17 09:30 | XMS_ITS | Clinical Summary ---
Author Organization [facility] Address [address] [place] [address] Care Team Providers Care Bump Grader Operator Name Role Phone Teresa Linda NP Primary Care Provider [phone] Source Comments PLEASE NOTE, if this patient is a minor, it may be UNLAWFUL to discuss sensitive information that is contained in these records (such as FAMILY PLANNING, MENTAL HEALTH or SUBSTANCE ABUSE) with the minor patient's parent or other person without the patient's specific authorization.[facility] Allergies No known active allergies Medications blood pressure test kit-mediumIndicati ons:Essential hypertension BLOOD PRESSURE MONITOR. Check blood pressure once daily in sitting position. Dx: I10. Wt: 174 lb Ht: 5' 5 1 Kit 8 Active acetaminophen (MAPAP ARTHRITIS PAIN) 650 mg CR tabletIndications: Chronic pain of right knee Take 1 Tablet by mouth every 8 (eight) hours as needed for pain for pain 30 Tablet 1 1 Active betamethasone valerate (VALISONE) 0.1 % ointmentIndication s:Psoriasis Apply topically once daily 45 g 2 1 Active betamethasone dipropionate (DIPROLENE) 0.05 % ointment APLY TO TRUNK, ARMS, AND LEGS TWO TIMES A DAY NEEDED FOR FLARES 1 Active calcipotriene (DOVONEX) 0.005 % ointment APPLY TO TRUNK, ARMS, AND LEGS TWO TIMES A DAY NEEDED FOR FLARES. ALTERNATE TIMES 1 Active ciclopirox (PENLAC) 8 % solution APPLY TO TOENAILS ONCE DAILY NEEDED. FILE NAILS ONCE A WEEK 1 Active blood-glucose meter monitoring kitIndications:Vanesa betes mellitus type 2 in nonobese ([facility]) as needed for blood glucose monitoring Freestyle, use daily to check blood sugar once a day 1 Each 1 Active alcohol swabsIndications:D iabetes mellitus type 2 in nonobese ([facility]) Check BS 100 Each 1 1 Active ammonium lactate 12 % cream APPLY TO BODY TWICE A DAY AFTER SHOWERING 1 Active FREESTYLE LITE METER monitoring kit USE NEEDED TO CHECK BLOOD SUGAR ONCE DAILY 1 Active spironolactone (ALDACTONE) 25 mg tabletIndications: Essential hypertension Take 1 Tablet by mouth once daily 90 Tablet 1 2 Active amLODIPine (NORVASC) 10 mg tabletIndications: Essential hypertension Take 1 Tablet by mouth once daily 90 Tablet 1 2 Active aspirin [address] tabletIndications: Essential hypertension Take 1 Tablet by mouth once daily 90 Tablet 1 2 Active atorvastatin (LIPITOR) 80 mg tabletIndications: Diabetes mellitus type 2 in nonobese ([facility]),Hyperlipi demia, unspecified hyperlipidemia type Take 1 Tablet by mouth once daily 90 Tablet 1 2 Active losartan-hydrochlo rothiazide (HYZAAR) 100-25 mg per tabletIndications: Essential hypertension TAKE 1 TABLET BY MOUTH ONCE DAILY 90 Tablet 1 2 Active metFORMIN (GLUCOPHAGE) 1,000 mg tabletIndications: Diabetes mellitus type 2 in nonobese ([facility]) TAKE ONE TABLET BY MOUTH TWICE A DAY WITH A MEAL 180 Tablet 1 2 Active blood sugar diagnostic (FREESTYLE TEST) stripsIndications: Diabetes mellitus type 2 in nonobese ([facility]) once daily FREESTYLE LITE Dx. 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 Patient refused colonoscopy for further eval. Tremor 11/30/2017 Overview (07/20/2021): 01/2021 Neuro appt Memory problem (R41.3): Can consider expanded neuropsych testing in Uzbek. [place] cognitive assessment does indicate significant deficits in the area of attention as well as language. See note above. It is unclear if MO CA does not translate well into Uzbek but MO CA findings in attention would limit this patient's ability to learn new information. Patient needs letter sent to Primary Care Provider with results of [place] CA indicating that patient has significant findings on the [place] cognitive assessment which likely do not fully represent his ability as he is able to function independently however, he does have significant deficits in the area of attention which would likely limit his ability to learn new information. MRI of the brain without contrast to identify structural abnormality or white matter changes that may impact memory and attention. Tremor (R25.1): Mri brain without contrast to identify frontal lobe structural changes that may be responsible for tremor Patient needs to follow-up with in office visit for evaluation of tremor which he reports is activation as well as resting. 01/01/17 - Neurology eval at [facility] Dr. Christian for tremor. No melter helper was present during the visit. Because of language barrier, we do not know if there's a familial component, etc. Not on any meds for tremor and no meds to cause tremor. No pill rolling Chronic pain of right knee 08/28/2017 Colonoscopy refused 04/27/17 04/27/2017 Aortic valve stenosis 11/22/2016 Overview (07/20/2021): 10/2019 [facility] cardiology note Assessment: Patient reports progressively worsening chest pain and dyspnea on exertion over the past several years. Patient reports ongoing symptoms of chest pressure radiating to his left shoulder which occurs at both rest and with exertion. Patient reports his symptoms are associated with shortness of breath. Patient otherwise denies symptoms of heart failure. He had a repeat echocardiogram on 09/17/2019 which showed worsening aortic stenosis with mean gradient 21 mmHg from 14 mmHg in 09/2016 which is still in the mild to moderate range, stroke-volume 110.18 ml, and cardiac index of 3.54 L/min/m . It is possible his symptoms are related to valvular dysfunction as well as possible coronary artery disease. We have recommended a right and left heart catheterization to the patient for further evaluation of his coronaries and aortic valve disease, however he reports that he is unwilling to proceed at this time. Patient reports that he would prefer medical management. Patient was agreeable to trial topical nitrates as well as aggressive risk factor modification. We will plan to see the patient in the clinic for follow-up. Recommendations: - Start Nitroglycerin topical 0.1mg/hr, apply in morning and remove during supper - Aspirin 81mg daily - Atorvastatin 40mg daily - Continue current anti-hypertensive regimen - Obtain lipid panel and Hba1c - Follow up with in-person visit in 3 months 10/09/16 - ECHO: moderately calcified AV with moderate . Normal LVEF (65%) with mild-moderate diastolic dysfunction. 10/24/17 - Evaluated by [facility]: 1. Moderate Aortic Stenosis: Patient seems to be getting progressively worse with worsening symptoms of CP and PRIDE over the past year. His symptoms are probably related to his aortic valve disease however, the patient does have risk factors for coronary artery disease which may be contributing to his symptoms as well. We have recommended a right and left heart catheterization to the patient for further evaluation of his coronaries and aortic valve disease however, he is unwilling to proceed with it at this point. Given his worsening symptoms, we will order a repeat echocardiogram to assess the possibility of progression of his . Will re-evaluate in 3 months. 2. Hypertension: controlled. continue with current medication regimen. 3. Diabetes Mellitus: stable. Patient noted not to be on a statin. I have [facility] spoke with RN who will leave a msg regarding the need to start the patient on a statin. Followup in 3 months. Diastolic dysfunction without heart failure 05/2016 Diabetes mellitus type 2 in nonobese ([facility]) 09/22/2016 Psoriasis Rheumatic fever with cardiac involvement Overview (09/22/2016): age 19 was hospitalized Essential hypertension Resolved Problems Problem Noted Date Diagnosed Date Resolved Date Diet-controlled diabetes alber litus ([facility]) 09/22/2016 09/22/2016 DM (diabetes mellitus) ([facility]) 09/22/2016 Family History Medical History Relation Name Comments Heart Problems Father Diabetes Mother Heart Problems Mother Relation Name Status Comments Father Mother Social History Tobacco Use Types Packs/Day Years Used Date Smoking Tobacco: Never Smokeless Tobacco: Never Tobacco Cessation:Counseling Given: Yes Alcohol Use Standard Drinks/Week Comments Never 0 (1 standard drink = 0.6 oz pur e alcohol) Social Connections Answer Date Recorded Connectedness 0 07/20/2021 Financial Resource Strain Answer Date R ecorded Financial Resource Strain 0 2021 Stress Answer Date Recorded Stress 0 07/20/2021 Physical Activity Answer Date Recorded Physical Activity 0 10/13/2018 Food Insecurity Answer Date Recorded Food 0 07/20/2021 Transportation Needs Answer Date Record ed Transportation 0 07/20/2021 Housing Stability Answer Date Recorded Housing 0 07/20/2021 Safety and Environment Answer Date Lukas rded Safety 0 07/20/2021 Utilities Answer Date Recorded Utilities 0 07/20/2021 Employment Answer Date Recorded Employment 0 10/13/2018 Sex and Gender Information Value Date Recorded Sex Assigned at Male 04/27/2017 5:52 AM PST Legal Sex Male 9:41 AM PDT Gender Identity Male 04/27/2017 5:52 AM PST Sexual Orientation Straight 04/27/2017 5: 52 AM PST Occupation Industry Job Start Date Job End Date Unemployed Not on file Not on file Not on file Last Filed Vital Signs Vital Sign Reading Time Taken Comments Blood Pressure 128/80 07/20/2021 9:49 AM EDT Pulse 60 07/20/2021 9:49 AM EDT Temperature 37.1 C (98.7 F) 07/20/2021 9:49 AM EDT Respiratory Rate 16 07/20/2021 9:49 AM EDT Oxygen Saturation 98% 07/20/2021 9:49 AM EDT Inhaled Oxygen Concentration - - Weight 76.1 kg (167 lb 12.8 oz) 07/20/2021 9:49 AM EDT Height 165.1 cm (5' 5 ) 07/20/2021 9:49 AM EDT Body Mass Index 27.92 07/20/2021 9:49 AM EDT Plan of Treatment Not on file Insurance [place] MEDICAID Care Teams Bump Grader Operator Relationship Specialty Start Date End Date Teresa Linda NP [address] [place] [address] PCP - General Internal Medicine 02/26/23
--- OUTSIDE RECORDS SUMMARY | 2024-11-17 09:30 | XMS_ITS | Patient Health Record ---
Author Organization [facility] Address [address] [place] [address] Care Team Providers Care Groundskeeping Yardman Name Role Phone Rosalia GALLARDO, [facility] Primary Care Provider U Jaime Floyd Unavailable [phone] Allergies No Known Allergies Results Component Value Reference Range Notes HEMOGLOBIN A1C (GLYCOHEMOGLO BIN) Reviewed date:05/13/2024 03:47:18 PM Interpretation: Performing Lab: Notes/Report: HEMOGLOBIN A1C % (HH) 6.8 HEMOGLOBIN A1C (GLYCOHEMOGLO BIN) Reviewed date:08/20/2024 01:33:52 PM Interpretation: Performing Lab: Notes/Report: HEMOGLOBIN A1C % (HH) 6.8 HEMOGLOBIN A1C (GLYCOHEMOGLO BIN) Reviewed date:11/13/2024 09:24:37 AM Interpretation: Performing Lab: Notes/Report: HEMOGLOBIN A1C % (HH) 6.6 Reason For Referral No Information Medications Medication SIG (Take, Route, Frequency, Duration) Notes Start Date End Date Status Ammonium Lactate 12 % 1 application Externally Twice a day Active Extra Depth Orthopedic Shoes, (1) Pair With (3) Pair Custom Heat Molded Multidensity Innersoles Dx: NIDDM/PVD(E11.51), Hammertoe Foot Deformity(M20.41,M20.42 ), Preulcerative Skin Lesion(s)(L85.1) Wear Daily; Duration: 365 days 02/21/2024 Active Vitamin B-12 500 MCG 1 tablet Orally Onc e a day Not-Taking Tussin Chest Congestion Not-Taking Amoxicillin Not-Taki ng Ibuprofen Not-Taking Ketorolac Tromethamine Not-Taking Tacrolimus 0.1 % 1 application Externally Once a day Active Diclofenac Sodium 1 % as directed Externally Not-Taking Isosorbide Mononitrate ER 60 MG 1 tablet in the morning Orally Once a day Active Alcohol Pads Not-David ing Latanoprost Active FreeStyle Lite Test Not-Taking Primidone 50 MG 1 tablet Orally Once a day Active Tamsulosin HCl 0.4 MG 1 capsule Orally O nce a day Active FreeStyle Lite - as directed N ot-Taking Esomeprazole Magnesium 20 MG 1 capsule Orally Once a day Active Docusate Sodium 100 MG 1 capsule as need ed Orally Once a day Active Candesartan Cilexetil 32 MG 1 tablet Orally Once a day Active Atorvastatin Calcium 40 MG 1 tablet Orally Once a day Active Ammonium Lactate 12 % 1 application Externally to affected areas of dry skin to feet except for between the toes Twice a day; Duration: 30 days Active amLODIPine Besylate 10 MG 1 tablet Orall y Once a day Active Ciclopirox Active Cyanocobalamin Activ e Tylenol Extra Strength 500 MG 1 tablet as needed Orally every 6 hrs Active Calcipotriene 0.005 % 1 application Externally Twice a day Active Betamethasone Dipropionate 0.05 % 1 application Externally Once a day Active Immunizations Vaccine Route [...] ast year? No Points 0 Interpretation Negative Problems Problem Type SNOMED Code ICD Code Onset Dates Problem Status W/U Status Risk Notes Problem Acquired hammer toe of right foot (0016822917156 105) Other hammer toe(s) (acquired), right foot (M20.41) Active confirmed Problem Type 2 diabetes mellitus with peripheral angiopathy (235547113) Type 2 diabetes mellitus with diabetic peripheral angiopathy without gangrene (E11.51) Active confirmed Q7(A), Q8(2B), Q9(1B,2C) Problem Acquired hammer toe of left foot (3434321162501 103) Other hammer toe(s) (acquired), left foot (M20.42) Active confirmed Vital Signs Blood pressure diastolic 78 mm Hg 11/13/2024 Height 5 ft 4 in in 11/13/2024 Blood pressure systolic 131 mm Hg 11/13/2024 Weight 165 lbs 11/13/2024 BMI 28.32 kg/m2 11/13/2024 Procedures Procedure Date Ordered Date Performed Result Body Sit e 20451-RCPNNUS NAIL, 6 OR MORE 02/21/2024 N/A 85404-XTBN SKIN LESIONS, OVER 4 02/21/2024 N/A 70989-SZOZPSX NAIL, 6 OR MORE 08/20/2024 N/A 94912-LVKE SKIN LESIONS, OVER 4 08/20/2024 N/A 17316-DIOMJYB NAIL, 6 OR MORE 11/13/2024 N/A 58488 I&D ABSCESS- SIMPLE,SINGLE 11/13/2024 N/A 78602-YBZD SKIN LESIONS, OVER 4 11/13/2024 N/A Encounters Encounter Location Date Provider Diagnosis [address] [address] 02/21/2024 Jaime Robyn Type 2 diabetes mellitus with diabetic peripheral angiopathy without gangrene E11.51 ; Tinea unguium B35.1 ; Pain in right toe(s) M79.674 ; Pain in left toe(s) M79.675 ; Other hammer toe(s) (acquired), left foot M20.42 and Other hammer toe(s) (acquired), right foot M20.[address] [address] 08/20/2024 Jaime Robyn Type 2 diabetes mellitus with diabetic peripheral angiopathy without gangrene E11.51 ; Other hammer toe(s) (acquired), right foot M20.41 ; Tinea unguium B35.1 ; Pain in right toe(s) M79.674 ; Pain in left toe(s) M79.675 and Other hammer toe(s) (acquired), left foot M20.[address] [address] 11/13/2024 Jaime Carlson Type 2 diabetes mellitus with diabetic peripheral angiopathy without gangrene E11.51 ; Tinea unguium B35.1 ; Pain in right toe(s) M79.674 ; Pain in left toe(s) M79.675 ; Abscess of toe, right L02.611 and Xerosis of skin L85.3 [facility] [address] [place] [address] 05/21/2024 Jaime Galvanier Assessments Encounter Date Diagnosis (ICD Code) Assessment Notes Treatment Notes Treatment Clinical Notes Section Notes 02/21/2024 Type 2 diabetes mellitus with diabetic peripheral angiopathy without gangrene (ICD-10 - E11.51) Q7(A), Q8(2B), Q9(1B,2C) 08/20/2024 Other hammer toe(s) (acquired), right foot (ICD-10 - M20.41) 08/20/2024 Type 2 diabetes mellitus with diabetic peripheral angiopathy without gangrene (ICD-10 - E11.51) Q7(A), Q8(2B), Q9(1B,2C) 11/13/2024 Type 2 diabetes mellitus with diabetic peripheral angiopathy without gangrene (ICD-10 - E11.51) Q7(A), Q8(2B), Q9(1B,2C) 11/13/2024 Tinea unguium (ICD-10 - B35.1) 08/20/2024 Tinea unguium (ICD-10 - B35.1) 11/13/2024 Pain in right toe(s) (ICD-10 - M79.674) 02/21/2024 Tinea unguium (ICD-10 - B35.1) 02/21/2024 Pain in right toe(s) (ICD-10 - M79.674) 08/20/2024 Pain in right toe(s) (ICD-10 - M79.674) 11/13/2024 Pain in left toe(s) (ICD-10 - M79.675) 08/20/2024 Pain in left toe(s) (ICD-10 - M79.675) 02/21/2024 Pain in left toe(s) (ICD-10 - M79.675) 02/21/2024 Other hammer toe(s) (acquired), left foot (ICD-10 - M20.42) 08/20/2024 Other hammer toe(s) (acquired), left foot (ICD-10 - M20.42) 11/13/2024 Abscess of toe, right (ICD-10 - L02.611) Patient Educated with: WOUND CARE INSTRUCTIONS.p df (WOUND CARE INSTRUCTIONS.p df) 11/13/2024 Xerosis of skin (ICD-10 - L85.3) 02/21/2024 Other hammer toe(s) (acquired), right foot (ICD-10 - M20.41) Patient Educated with: DIABETIC FOOT CARE INSTRUCTIONS.p df (DIABETIC FOOT CARE INSTRUCTIONS.p df) Plan Of Treatment Pending Test Test Name Order Date [id number] NAIL, 6 OR MORE 02/21/2024 [id number] NAIL, 6 OR MORE 08/20/2024 88460-[id number] NAIL, 6 OR MORE 11/13/2024 49859 I&D ABSCESS- SIMPLE,SINGLE 025 55675-PYIB SKIN LESIONS, OVER 4 11/14/19 96352-JDWK SKIN LESIONS, OVER 4 08/21/19 25 18862-MPJT SKIN LESIONS, OVER 4 02/20/19 Next Appt Details Provider Name:Jaime Carlson , 03/02/2025 09:30:00 AM, [address] [facility], [address], [place], [address], Insurance Providers Payer Name Payer Address Payer Phone Subscriber Number Group Number Insured Name Patient Relationship to Insured Coverage Start Date Coverage End Date [employer] [address] [address] [id number] Ariadne Cotton Self - patient is the insured 3 Medical (General) History Medical History History ICD Code Action Tremor Active Rheumatic Fever w/ Cardiac Involv ement Age-related cataract of both eyes Aortic stenosis Angiopathy, Diabetic Benign positional vertigo benign prostatic hyperplasia w/ lower ur inary tract BPH w/ obstruction/lower urinary tract s ymptoms Cardiomyopathy Carpal tunnel Cerebral Ischemia Brain atrophy constipation in male Coronary artery disease w/ angina pector is dizziness diastolic dysfunction w/ chronic heart f ailure DM type 2 diabetes dyspnea on exertion goiter essential hypertension hearing loss in left ear Heart disease heart burn intraocular pressure increase hemorrhagic condition melanocytic nevus Microangiopathy Mild dementia Moderate aortic stenosis Nausea and vomiting Nocturia Numbness Nontoxic goiter Plaque psoriasis Polyneuropathy Psoriasis Tinnitus tremors Seborrheic keratoses Weakness of both hands Surgical History Surgery Date(Month/Year) cataract surgery right eye
== END 2024-11-17 09:30 | disposition home or self-care (01) ==
LOC: HO.HSMS 08:57
PROVIDERS: PCP Internal Medicine; Visit Provider Psychiatry & Neurology Neurology
DX: G25.2 Other specified forms of tremor (principal); R41.89 Other symptoms and signs involving cognitive functions and awareness
CPT/HCPCS: 99214